=== PATIENT | female | born 1960 | race Caucasian/White ===

== ENCOUNTER 2025-04-18 15:03 | Outpatient (REF) | payer MEDICARE, SELFPAY ==
--- NOTE | 2025-04-18 | EMG_ITS ---
Chief complaint:?Multiple sclerosis, unspecified Referred by:?Trini Pathak NP Procedure done: Left upper and left lower extremities NCS/EMG Left median and ulnar and peroneal and tibial motor studies were performed. Left median and ulnar mixed sensory studies, radial sensory study, superficial peroneal and sural sensory study, and median and lateral antecubital brachial sensory studies were performed and needle examination was performed. Findings: Motor studies revealed no significant abnormality except left peroneal motor amplitude was significantly diminished. Median and lateral mixed plantars sensory studies were absent. Otherwise no significant abnormality was noted. Impression: 1. 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 [id number] 2 extremities MTDD
--- OUTSIDE RECORDS SUMMARY | 2025-04-18 07:45 | XMS_ITS | Encounter Summary ---
Author Organization [facility] Address [address] [place] [address] Care Team Providers Care Graduate Rn Name Role Phone Albina Keller MD Primary Care Prov ider Reason for Visit * Episode Based Medications (Routine) - Authorized Specialty Diagnoses / Procedures Referred By Contclementina t Referred To Contact Diagnoses Relapsing-remitting multiple sclerosis Jessa Harris MD [address] [place] [id number] Phone: tel: fax: [facility] [address] [phone] Phone: tel: fax: Referral ID Status Reason Start Date Expiration Date V isits Requested Visits Authorized [id number] Authorized 04/19/2024 04/27/2026 4 4 Encounter Details Date Type Department Care Team (Latest Contact Info) Description 04/18/2025 7:45 AM EST Hospital Encounter [facility] [address] [phone] Multiple sclerosis (Primary Dx); Encounter for therapeutic drug monitoring; Vitamin D deficiency Social History Tobacco Use Types Packs/Day Years Used Date Smoking Tobacco: Never Smokeless Tobacco: Never Alcohol Use Standard Drinks/Week Comments Yes 0 (1 standard drink = 0.6 oz pur e alcohol) Comments Unknown Sex and Gender Information Value Date Recorded Sex Assigned at Not on file Legal Sex Female 9:27 AM EST Gender Identity Not on file Sexual Orientation Not on file documented as of this encounter Last Filed Vital Signs Vital Sign Reading Time Taken Comments Blood Pressure 136/81 04/18/2025 11:30 AM EST Pulse 61 04/18/2025 11:30 AM EST Temperature 36.1 C (96.9 F) 04/18/2025 11:30 AM EST Respiratory Rate 20 04/18/2025 11:30 AM EST Oxygen Saturation 98% 04/18/2025 11:30 AM EST Inhaled Oxygen Concentration - - Weight - - Height - - Body Mass Index - - documented in this encounter Progress Notes * June Telles RN - 04/18/2025 8:00 AM EST Ocrevus dose 600mg infusion # 8 completed - Rapid Rates Pt. premedicated with 975mg PO Tylenol, 50mg IVP Benadryl and 125mg IVP Solumedrol. Labs: drawn 04/18/25 Brain MRI: 02/23/25 Cervical MRI: 02/23/25 Provider: Steven Last appointment: 02/15/25 Next appointment: 09/13/25 6 month subsequent infusion: 10/17/25 Pt. Did not complete one hour observation period; signed AMA paperwork. Pt. verbalized understanding of all discharge instructions and future appointment dates/times provided. VSS. Pt. Tolerated infusion without incident. IV removed. Patient discharged to home. documented in this encounter Plan of Treatment Upcoming Encounters Date Type Department Care Team (Late st Contact Info) Description 09/13/2025 10:00 AM EDT Office Visit [facility] - [address] [phone] Jessa Harris MD [address] [place] [address] 10/17/2025 8:00 AM EDT Appointment [facility] - [address] [phone] Pending Results Name Type Priority Associated Diagnoses Date /Time BUN Lab Routine Multiple sclerosis Encounter for therapeutic drug monitoring 04/18/2025 8:05 AM EST Creatinine Lab Routine Multiple sclerosis Encounter for therapeutic drug monitoring 04/18/2025 8:05 AM EST Vitamin B12 Lab Routine Multiple sclerosis Encounter for therapeutic drug monitoring 04/18/2025 8:05 AM EST Hepatic function panel Lab Routine Multiple sclerosis Encounter for therapeutic drug monitoring 04/18/2025 8:05 AM EST Scheduled Orders Name Type Priority Associated Diagnoses Orde r Schedule BUN Lab Routine Multiple sclerosis Encounter for therapeutic drug monitoring Once for 1 Occurrences starting 04/18/2025 until 04/18/2025 Creatinine Lab Routine Multiple sclerosis Encounter for therapeutic drug monitoring Once for 1 Occurrences starting 04/18/2025 until 04/18/2025 Vitamin B12 Lab Routine Multiple sclerosis Encounter for therapeutic drug monitoring Once for 1 Occurrences starting 04/18/2025 until 04/18/2025 Hepatic function panel Lab Routine Multiple sclerosis Encounter for therapeutic drug monitoring Once for 1 Occurrences starting 04/18/2025 until 04/18/2025 documented as of this encounter Procedures Procedure Name Priority Date/Time Associated Diagnosis Comments CBC WITH AUTO DIFFERENTIAL Routine 04/18/2025 8:05 AM EST Multiple sclerosis Encounter for therapeutic drug monitoring CBC AND DIFFERENTIAL Routine 04/18/2025 8:05 AM EST Multiple sclerosis Encounter for therapeutic drug monitoring documented in this encounter Results * (ABNORMAL) CBC auto differential (04/18/2025 8:05 AM EST) WBC 4.4(L) 4.8 - 10.8 K/mcL LAB HEMETOLOGY METHOD 04/18/2025 2:39 PM EST [facility] RBC 4.40 3.80 - 4.80 M/mcL LAB HEMETOLOGY METHOD 04/18/2025 2:39 PM EST [facility] Hemoglobin 14.3 11.5 - 16.0 g/dL LAB HEMETOLOGY METHOD 04/18/2025 2:39 PM [facility] Hematocrit 41.6 35.0 - 47.0 % LAB HEMETOLOGY METHOD 04/18/2025 2:39 PM [facility] MCV 95.0 79.0 - 98.0 FL LAB HEMETOLOGY METHOD 04/18/2025 2:39 PM [facility] MCH 32.6(H) 27.0 - 32.0 pcg LAB HEMETOLOGY METHOD 04/18/2025 2:39 PM [facility] MCHC 34.4 32.0 - 37.0 g/dL LAB HEMETOLOGY METHOD 04/18/2025 2:39 PM [facility] RDW 12.3 11.0 - 15.0 % LAB HEMETOLOGY METHOD 04/18/2025 2:39 PM [facility] Platelets 289 130 - 400 K/mcL LAB HEMETOLOGY METHOD 04/18/2025 2:39 PM [facility] MPV 12.0(H) 7.0 - 11.0 FL LAB HEMETOLOGY METHOD 04/18/2025 2:39 PM [facility] NRBC 0.0 <1.0 % LAB HEMETOLOGY METHOD 04/18/2025 2:39 PM [facility] NRBC Absolute 0.00 <0.10 K/mcL LAB HEMETOLOGY METHOD 04/18/2025 2:39 PM [facility] Neutrophils Relative 64.7 % LAB HEMETOLOGY METHOD 04/18/2025 2:39 PM [facility] Lymphocytes Relative 23.5 % LAB HEMETOLOGY METHOD 04/18/2025 2:39 PM [facility] Monocytes Relative 8.9 % LAB HEMETOLOGY METHOD 04/18/2025 2:39 PM [facility] Eosinophils Relative 1.8 % LAB HEMETOLOGY METHOD 04/18/2025 2:39 PM [facility] Basophils Relative 0.9 % LAB HEMETOLOGY METHOD 04/18/2025 2:39 PM [facility] Immature Granulocytes Relative 0.2 % LAB HEMETOLOGY METHOD 04/18/2025 2:39 PM EST [facility] Neutrophils Absolute 2.83 1.50 - 7.00 K/mcL LAB HEMETOLOGY METHOD 04/18/2025 2:39 PM EST [facility] Lymphocytes Absolute 1.03 1.00 - 5.00 K/mcL LAB HEMETOLOGY METHOD 04/18/2025 2:39 PM EST [facility] Monocytes Absolute 0.39 0.20 - 1.00 K/mcL LAB HEMETOLOGY METHOD 04/18/2025 2:39 PM EST [facility] Eosinophils Absolute 0.08 0.00 - 0.50 K/mcL LAB HEMETOLOGY METHOD 04/18/2025 2:39 PM [facility] Basophils Absolute 0.04 0.00 - 0.20 K/mcL LAB HEMETOLOGY METHOD 04/18/2025 2:39 PM EST [facility] Immature Granulocytes Absolute 0.01 0.00 - 0.03 K/mcL LAB HEMETOLOGY METHOD 04/18/2025 2:39 PM [facility] Blood Venous blood specimen / Unknown Venipuncture / Unknown 04/18/2025 8:05 AM EST 04/18/2025 8:05 AM EST [facility] BLOOD ORDERABLES Final R esult [facility] [address] [place] [address], documented in this encounter Visit Diagnoses Diagnosis Multiple sclerosis- Primary Encounter for therapeutic drug monitoring Vitamin D deficiency documented in this encounter Administered Medications Inactive Administered Medications - up to 3 most recent administrations Medication Order MAR Action Action Date Dose Rate Site acetaminophen (TYLENOL) tablet 975 mg 975 mg, oral, Once, On 04/18/25 at 0830, For 1 dose Given 04/18/2025 8:50 AM EST 975 mg diphenhydrAMINE (BENADRYL) injection 50 mg 50 mg, intravenous, Once, On Fri04/18/25 at 0830, For 1 dose Given 04/18/2025 8:50 AM EST 50 mg methylPREDNISolone sodium succ (SOLU-Medrol) injection 125 mg 125 mg, intravenous, Once, On Fri04/18/25 at 0830, For 1 dose, Reconstitute each 125 mg vial with 2 mL sterile water for injection to a concentration of 62.5 mg/mL. Given 04/18/2025 8:50 AM EST 125 mg ocrelizumab (OCREVUS) 600 mg in sodium chloride 0.9 % 520 mL IVPB 600 mg, intravenous, Once, On Fri04/18/25 at 0900, For 1 dose, If no prior serious infusion reaction with any previous ocrelizumab infusion, begin infusion at 100 mL/hour for the first 15 minutes. Increase infusion rate to 200 mL/hour for the next 15 minutes. Increase infusion rate to 250 mL/hour for the next 30 minutes. Increase infusion rate to 300 mL/hour for the remaining 60 minutes. Infusion duration is 2 hours or longer. For patients with a history of serious infusion reaction to any previous ocrelizumab infusion, begin infusion at 40 mL/hour; increase by 40 mL/hour every 30 minutes to a maximum rate of 200 mL/hour. Infusion duration is 3.5 hours or longer. Administer though a dedicated IV line using a 0.2 or 0.22 micron in-line filter.Indications:Multiple sclerosis New Bag 04/18/2025 9:15 AM EST 600 mg documented in this encounter Orders Nursing Count Last Ordered Date First Orde red Date ONC NURSING COMMUNICATION 1 04/18/2025 ONC NURSING COMMUNICATION 10 1 04/18/2025 ONC NURSING COMMUNICATION 7 1 04/18/2025 TREATMENT CONDITIONS 1 04/18/2025 documented in this encounter Care Teams Graduate Rn Relationship Specialty Start Date End Date Albina Keller MD [address] [place] [id number] PCP - General Internal Medicine 03/29/24 documented as of this encounter
--- OUTSIDE RECORDS SUMMARY | 2025-04-18 18:18 | XMS_ITS | Clinical Summary ---
Author Organization [address] [facility] Address [address] [place] [address] Phone Care Team Providers Care Fire Supervisor Name Role Phone Albina Keller MD Primary Care Prov ider Allergies Active Allergy Reactions Criticality Noted Date Comments Grass Pollen 09/19/2017 Penicillins 02/01/2016 Medications albuterol HFA (PROAIR HFA ; PROVENTIL HFA ; VENTOLIN HFA) 90 mcg/actuation inhaler Inhale 2 puffs. 01/05/2020 Active baclofen (LIORESAL) 10 mg tablet Take 1 tablet (10 mg total) by mouth. 03/13/2022 Active butalbital-acet aminophen-caffe ine (ESGIC) 50-325-40 mg per capsule 11/29/2020 Active fexofenadine (DONOVAN) 180 mg tablet Take 1 tablet (180 mg total) by mouth every other day. 11/02/2011 Active gabapentin (NEURONTIN) 100 mg capsule Take 1 capsule (100 mg total) by mouth. 08/08/2021 Active ocrelizumab (Ocrevus) 30 mg/mL solution injection Infuse 10 mL (300 mg total) into a venous catheter. 12/27/2020 Active oxybutynin XL (DITROPAN-XL) 5 mg 24 hr tablet Take 1 tablet (5 mg total) by mouth 1 (one) time each day. 01/30/2022 Active cefdinir (OMNICEF) 300 mg capsule Take 1 capsule (300 mg total) by mouth 2 (two) times a day. 06/15/2023 Active cyanocobalamin 2,000 mcg tablet 1 po qd 09/16/2023 Active solifenacin (VESICARE) 5 mg tablet Take 1 tablet (5 mg total) by mouth 1 (one) time each day. 11/26/2024 Active ergocalciferol (VITAMIN D-2) 1,250 mcg (50,000 unit) capsule TAKE 1 CAPSULE ONE TIME WEEKLY 12 capsule 02/22/2025 Active Active Problems Problem Noted Date Diagnosed Date Multiple sclerosis 01/29/2019 Overview (06/02/2022): Dr. Livingston Consult note 01/26/2019 showing extensive periventricular white matter lesions including corpus callosum and multiple black holes. No enhancing lesions in the brain. These are highly suggestive of a mass. MRI reviewed on 01/20/2019 Previous negative EMG 01/23/2017 Allergic asthma 03/25/2010 Overview (06/02/2022): Usually during the spring and the patient uses the Albuterol rarely Carpal tunnel syndrome 03/04/2008 Overview (06/02/2022): EMG 02/02; L > R Common migraine 08/03/2005 Overview (06/02/2022): IMO update Morbid obesity 08/03/2005 Encounters Date Type Department Care Team Description 04/18/2025 7:45 AM EST Hospital Encounter [facility] [address] [phone] Multiple sclerosis (Primary Dx); Encounter for therapeutic drug monitoring; Vitamin D deficiency 03/17/[address] [facility] [address] [phone] Trini Pathak, [place] 02/24/[address] [facility] [address] [place] [address] Trini Pathak PA 02/23/2025 1:46 PM EDT - 02/23/2025 11:59 PM EDT Hospital Encounter [facility] [address] [place] [phone] Multiple sclerosis Discharge Disposition: Home or Self Care 02/23/2025 1:46 PM EDT - 02/23/2025 11:59 PM EDT Hospital Encounter [facility] [address] [place] [phone] Multiple sclerosis Discharge Disposition: Home or Self Care 02/15/2025 9:00 AM EDT Office Visit [facility] [address] [facility] [address] [place] [phone] Trini Pathak PA Multiple sclerosis (Primary Dx) from Last 3 Months Surgical History Surgery Date Site/Laterality Comments CHOLECYSTECTOMY PROCEDURE: HISTORICAL CHOLECYSTECTOMY FLEXIBLE SIGMOIDOSCOPY 1994 PROCEDURE: ME SIGMOIDOSCOPY FLX DX W/COLLJ SPEC BR/WA IF PFRMD OTHER SURGICAL HISTORY 03/02 PROCEDURE: MAMMOGRAM OTHER SURGICAL HISTORY 04/02 PROCEDURE: PAP SMEAR (1 SLIDE); COMMENT: Cristian; neg COLONOSCOPY 11/06/2009 PROCEDURE: ME COLONOSCOPY FLX DX W/COLLJ SPEC WHEN PFRMD; COMMENT: Normal BREAST BIOPSY 05/2015 Right PROCEDURE: BX BREAST; PERC NEEDLE CORE W/IMAG GUID; COMMENT: cyst asp CHOLECYSTECTOMY PROCEDURE: ME LAPAROSCOPY SURG CHOLECYSTECTOMY Medical History Medical History Date Comments Arthritis DX:Arthritis MS (multiple sclerosis) DX:MS (m ultiple sclerosis) (HCC) Migraine without aura, witho ut mention of intractable migraine without mention of status migrainosus 08/03/2005 DX:Migraine without aura , without mention of intractable migraine without mention of status migrainosus Polycystic ovaries 08/03/2005 DX:Polycystic ovaries Morbid obesity (CMS/HCC V24, CMS/HCC V28) 08/03/2005 DX:Morbid obesity (HCC) Carpal tunnel syndrome 03/04/2008 DX:Carpal tunnel syndrome; COMMENT: EMG 02/02; L > R Family history of colonic polyps 11/06/2009 DX:Family history of colonic polyps Asthma DX:Asthma Multiple sclerosis DX:Multiple s clerosis (HCC) Family History Medical History Relation Name Comments Stroke Father Multiple sclerosis Father's Sister Diabetes Maternal Grandmother Other: heart disease Maternal Grandmother Other: valvular heart disease Maternal Grandmother Cancer Mother age 60 Diabetes Other Cervical cancer Sister Other: heart disease Uncle Relation Name Status Comments Father Father's Sister Maternal Grandmother Mother age 60 Alive Other Sister Uncle Social History Tobacco Use Types Packs/Day Years Used Date Smoking Tobacco: Never Smokeless Tobacco: Never Tobacco Cessation:Counseling Given: Not Answered Alcohol Use Standard Drinks/Week Comments Yes 0 (1 standard drink = 0.6 oz pur e alcohol) Comments Unknown Sex and Gender Information Value Date Recorded Sex Assigned at Not on file Legal Sex Female 9:27 AM EST Gender Identity Not on file Sexual Orientation Not on file Last Filed Vital Signs Vital Sign Reading Time Taken Comments Blood Pressure 136/81 04/18/2025 11:30 AM EST Pulse 61 04/18/2025 11:30 AM EST Temperature 36.1 C (96.9 F) 04/18/2025 11:30 AM EST Respiratory Rate 20 04/18/2025 11:3 0 AM EST Oxygen Saturation 98% 04/18/2025 11: 30 AM EST Inhaled Oxygen Concentration - - Weight 86.1 kg (189 lb 12.8 oz) 02/02/2024 9:57 AM EDT Height 139.7 cm (4' 7 ) 02/02/2024 9:57 AM EDT Body Mass Index 44.11 02/02/2024 9:57 AM EDT Plan of Treatment Upcoming Encounters Date Type Department Care Team (Late st Contact Info) Description 09/13/2025 10:00 AM EDT Office Visit [facility] [place] [address] [phone] Jessa Harris MD [address] [place] [address] 10/17/2025 8:00 AM EDT Appointment [facility] [place] [address] [phone] Health Maintenance Due Date Last Done Comments Colorectal Cancer Screening: Colonoscopy 1960 Drug Screen 1960 Non-Opioid Controlled Substance Agreement 1959 RSV Immunization Adult Patients (1 - Risk 50-74 years 1-dose series) 2009 Breast Cancer Screening 06/24/2020 06/24/2018, 06/19 Hepatitis C Screening 04/04/2022 Medicare Annual Wellness Visit 04/04/2022 Osteoporosis Screening (Bone Density Screening) 04/04/2022 Social Influencers of Health Screening 04/04/2022 Falls Risk Assessment 01/02/2024 Zoster Vaccines (2 of 2) 02/09/2024 12/15/2023, 12/27 Depression Screening 04/28/2024 COVID-19 Vaccine ( - season) 2024 03/28/2023, 07/31/2020, 07/03/2020 Influenza Vaccine (#1) 2024 , 01/20/2021, 01/11/2019, Additional history exists Cholesterol Screening (Lipid Panel) 12/16/2028 12/17/2023, 12/17/2023 DTaP,Tdap,and Td Vaccines (4 - Td or Tdap) 12/16/2033 12/17/2023, 12/10/2013, 01/07/2005 Varicella Vaccines Aged Out 01/07/2005 No longer eligible based on patient's age to complete this topic Pneumococcal Vaccine: 50+ Years Completed 03/28/2023, 12/10/2013 HIB Vaccines Aged Out No longer eligi ble based on patient's age to complete this topic HPV Vaccines Aged Out No longer eligi ble based on patient's age to complete this topic Hepatitis A Vaccines Aged Out No long er eligible based on patient's age to complete this topic Hepatitis B Vaccines Aged Out No long er eligible based on patient's age to complete this topic IPV Vaccines Aged Out No longer eligi ble based on patient's age to complete this topic MMR Vaccines Aged Out No longer eligi ble based on patient's age to complete this topic Meningococcal ACWY Vaccine Aged Out N o longer eligible based on patient's age to complete this topic Meningococcal B Vaccine Aged Out No l onger eligible based on patient's age to complete this topic RSV Immunization Patients Under 20 months Aged Out No longer eligible based on patient's age to complete this topic Procedures Procedure Name Priority Date/Time Associated Diagnosis Comments CBC WITH AUTO DIFFERENTIAL Routine 04/18/2025 8:05 AM EST Multiple sclerosis Encounter for therapeutic drug monitoring CBC AND DIFFERENTIAL Routine 04/18/2025 8:05 AM EST Multiple sclerosis Encounter for therapeutic drug monitoring MR CERVICAL SPINE WO CONTRAST Routine 02/23/2025 3:56 PM EDT Multiple sclerosis MR BRAIN WO CONTRAST Routine 02/23/2025 3:56 PM EDT Multiple sclerosis SCR MAMMO BI INCL CAD Routine 06/24/2018 8:00 AM EST Encounter for screening mammogram for malignant neoplasm of breast from Last 3 Months or Most Recently Relevant to Health Maintenance Results * (ABNORMAL) CBC auto differential (04/18/2025 8:05 AM EST) WBC 4.4(L) 4.8 - 10.8 K/mcL LAB HEMETOLOGY METHOD 04/18/2025 2:39 PM [facility] RBC 4.40 3.80 - 4.80 M/mcL LAB HEMETOLOGY METHOD 04/18/2025 2:39 PM [facility] Hemoglobin 14.3 11.5 - 16.0 g/dL LAB HEMETOLOGY METHOD 04/18/2025 2:39 PM [facility] Hematocrit 41.6 35.0 - 47.0 % LAB HEMETOLOGY METHOD 04/18/2025 2:39 PM [facility] MCV 95.0 79.0 - 98.0 FL LAB HEMETOLOGY METHOD 04/18/2025 2:39 PM [facility] MCH 32.6(H) 27.0 - 32.0 pcg LAB HEMETOLOGY METHOD 04/18/2025 2:39 PM [facility] MCHC 34.4 32.0 - 37.0 g/dL LAB HEMETOLOGY METHOD 04/18/2025 2:39 PM [facility] RDW 12.3 11.0 - 15.0 % LAB HEMETOLOGY METHOD 04/18/2025 2:39 PM [facility] Platelets 289 130 - 400 K/mcL LAB HEMETOLOGY METHOD 04/18/2025 2:39 PM [facility] MPV 12.0(H) 7.0 - 11.0 FL LAB HEMETOLOGY METHOD 04/18/2025 2:39 PM [facility] NRBC 0.0 <1.0 % LAB HEMETOLOGY METHOD 04/18/2025 2:39 PM [facility] NRBC Absolute 0.00 <0.10 K/mcL LAB HEMETOLOGY METHOD 04/18/2025 2:39 PM [facility] Neutrophils Relative 64.7 % LAB HEMETOLOGY METHOD 04/18/2025 2:39 PM [facility] Lymphocytes Relative 23.5 % LAB HEMETOLOGY METHOD 04/18/2025 2:39 PM [facility] Monocytes Relative 8.9 % LAB HEMETOLOGY METHOD 04/18/2025 2:39 PM [facility] Eosinophils Relative 1.8 % LAB HEMETOLOGY METHOD 04/18/2025 2:39 PM [facility] Basophils Relative 0.9 % LAB HEMETOLOGY METHOD 04/18/2025 2:39 PM [facility] Immature Granulocytes Relative 0.2 % LAB HEMETOLOGY METHOD 04/18/2025 2:39 PM [facility] Neutrophils Absolute 2.83 1.50 - 7.00 K/mcL LAB HEMETOLOGY METHOD 04/18/2025 2:39 PM [facility] Lymphocytes Absolute 1.03 1.00 - 5.00 K/mcL LAB HEMETOLOGY METHOD 04/18/2025 2:39 PM EST [facility] Monocytes Absolute 0.39 0.20 - 1.00 K/mcL LAB HEMETOLOGY METHOD 04/18/2025 2:39 PM EST [facility] Eosinophils Absolute 0.08 0.00 - 0.50 K/mcL LAB HEMETOLOGY METHOD 04/18/2025 2:39 PM EST [facility] Basophils Absolute 0.04 0.00 - 0.20 K/mcL LAB HEMETOLOGY METHOD 04/18/2025 2:39 PM EST [facility] Immature Granulocytes Absolute 0.01 0.00 - 0.03 K/mcL LAB HEMETOLOGY METHOD 04/18/2025 2:39 PM EST [facility] Blood Venous blood specimen / Unknown Venipuncture / Unknown 04/18/2025 8:05 AM EST 04/18/2025 8:05 AM EST Trini VERGARA LAB BLOOD ORDERABLES Final R esult [facility] [address] [place] [address], * MR Cervical Spine wo Contrast (02/23/2025 3:56 PM EDT) Anatomical Region Laterality Modality C-spine, Spine Magnetic Resonan ce 03/01/2025 9:42 AM EST Impressions 03/01/2025 9:59 AM EST 1. 2 stable areas of signal abnormality in the cervical cord which presumably represent demyelinating plaques in this patient with a provided history of multiple sclerosis. 2. Multilevel degenerative changes as detailed above, including a large right central disc osteophyte complex at C5-6 which indents the cord. -------- FINAL REPORT -------- Dictated By: Justice Kirby Dictated Date: 03/01/2025 09:42 ET Assigned Physician: Justice Kirby Reviewed and Electronically Signed By: Justice Kirby Signed Date: 03/01/2025 09:59 ET Workstation ID: [id number] Transcribed By: Self Edit Transcribed Date: 03/01/2025 09:48 ET Narrative 03/01/2025 9:59 AM EST PROCEDURE: MRI of the cervical spine without intravenous contrast. TECHNIQUE: Sagittal and axial multisequence MRI of the cervical spine without intravenous contrast administration. HISTORY: MS COMPARISON: 04/18/2024. FINDINGS: Please see the accompanying dedicated MRI brain report for findings affecting the brain and skull base. No concerning marrow infiltrative lesion. Tortuous retropharyngeal course of the right carotid artery. Otherwise unremarkable paraspinous soft tissues. The cord is normal in caliber. There is stable ill-defined signal abnormality in the central cord at the superior C4 level. Stable focus of signal abnormality in the right anterior cord at T6. No new cervical cord lesion. Possible patchy signal abnormality in the upper thoracic cord, incompletely evaluated on this study. Cervical disc levels: C2-3: Mild degenerative irregularity of the endplates. Mild irregularity and spurring of the facet joints. No significant spinal or foraminal stenosis. C3-4: Mild endplate irregularity. Small left larger than right uncovertebral spurs and minimal degenerative irregularity of the left facet joint. No spinal stenosis. Moderate left and mild right foraminal stenosis. C4-5: Mild endplate irregularity. Minimal left and small right uncovertebral spurs. Mild bilateral facet arthropathy. No spinal stenosis. Mild left greater than right foraminal stenosis. C5-6: Mild endplate irregularity. Minimal bilateral uncovertebral spurs. Large central disc osteophyte complex which indents the cord. Mild narrowing of the spinal canal. No significant foraminal stenosis. C6-7: Mild endplate irregularity. Minimal symmetric disc osteophyte complex and minimal bilateral facet arthropathy. No spinal or foraminal stenosis. C7-T1: Minimal anterolisthesis. Minimal endplate irregularity. Moderate left and mild right facet arthropathy without significant spinal or foraminal stenosis. Procedure Note Justice Kirby MD - 03/01/2025 PROCEDURE: MRI of the cervical spine without intravenous contrast. TECHNIQUE: Sagittal and axial multisequence MRI of the cervical spinewithout intravenous contrast administration. HISTORY: MS COMPARISON: 04/18/2024. FINDINGS: Please see the accompanying dedicated MRI brain report for findingsaffecting the brain and skull base. No concerning marrow infiltrative lesion. Tortuous retropharyngeal course of the right carotid artery. Otherwiseunremarkable paraspinous soft tissues. The cord is normal in caliber. There is stable ill-defined signalabnormality in the central cord at the superior C4 level. Stable focus ofsignal abnormality in the right anterior cord at T6. No new cervical cordlesion. Possible patchy signal abnormality in the upper thoracic cord,incompletely evaluated on this study. Cervical disc levels: C2-3: Mild degenerative irregularity of the endplates. Mild irregularityand spurring of the facet joints. No significant spinal or foraminalstenosis. C3-4: Mild endplate irregularity. Small left larger than rightuncovertebral spurs and minimal degenerative irregularity of the leftfacet joint. No spinal stenosis. Moderate left and mild right foraminalstenosis. C4-5: Mild endplate irregularity. Minimal left and small rightuncovertebral spurs. Mild bilateral facet arthropathy. No spinalstenosis. Mild left greater than right foraminal stenosis. C5-6: Mild endplate irregularity. Minimal bilateral uncovertebral spurs.Large central disc osteophyte complex which indents the cord. Mildnarrowing of the spinal canal. No significant foraminal stenosis. C6-7: Mild endplate irregularity. Minimal symmetric disc osteophytecomplex and minimal bilateral facet arthropathy. No spinal or foraminalstenosis. C7-T1: Minimal anterolisthesis. Minimal endplate irregularity. Moderateleft and mild right facet arthropathy without significant spinal orforaminal stenosis. IMPRESSION: 1. 2 stable areas of signal abnormality in the cervical cord whichpresumably represent demyelinating plaques in this patient with a providedhistory of multiple sclerosis. 2. Multilevel degenerative changes as detailed above, including a largeright central disc osteophyte complex at C5-6 which indents the cord. -------- FINAL REPORT -------- Dictated By: Justice Kirby Dictated Date: 03/01/2025 09:42 ET Assigned Physician: Justice Kirby Reviewed and Electronically Signed By: Justice Kirby Signed Date: 03/01/2025 09:59 ET Workstation ID: [id number] Transcribed By: Self Edit Transcribed Date: 03/01/2025 09:48 ET [facility] IM MRI PROCEDURES Final Res ult * MR Brain wo Contrast (02/23/2025 3:56 PM EDT) Anatomical Region Laterality Modality Head and Neck Magnetic Resonan ce 03/01/2025 8:32 AM EST Impressions 03/01/2025 8:47 AM EST Given differences in technique, no appreciable interval change in multifocal T2 hyperintense lesions suggesting demyelinating plaques. No findings to suggest active demyelination. -------- FINAL REPORT -------- Dictated By: Jsutice Kirby Dictated Date: 03/01/2025 08:32 ET Assigned Physician: Justice Kirby Reviewed and Electronically Signed By: Justice Kirby Signed Date: 03/01/2025 08:47 ET Workstation ID: [id number] Transcribed By: Self Edit Transcribed Date: 03/01/2025 08:32 ET Narrative 03/01/2025 8:47 AM EST PROCEDURE: Noncontrast MRI of the brain. HISTORY: multiple sclerosis. COMPARISON: 04/18/2024. TECHNIQUE: Multiplanar multisequence MRI of the brain without intravenous contrast administration. FINDINGS: BRAIN: The comparison study was performed with less sensitive technique than today's examination (it did not include a volume acquisition FLAIR sequence). Given this limitation, multifocal cortical and periventricular supratentorial white matter lesions are not appreciably changed. Some of the lesions are hypointense on the T1-weighted spin-echo sequence; the T1 lesion burden is unchanged. Patchy signal abnormality in the brainstem and a focus of signal abnormality in the anterior left cerebellar hemisphere also appear grossly stable. No diffusion abnormality. No mass or extra-axial fluid collection. No hydrocephalus. The major intracranial flow voids are preserved. Age commensurate ventricles and sulci. ORBITS: Lens implants. T2 signal abnormality in the left optic nerve. SINUSES/MASTOIDS: Patchy mucosal thickening in the right ethmoid air cells. Minimal mucosal thickening along the floor the right maxillary antrum. Rightward bowing of the inferior nasal septum with a moderate apical septal spur. CALVARIUM: Mild hyperostosis frontalis interna. OTHER: The visualized skull base soft tissues are normal. Mild degenerative changes of the visualized cervical spine. Procedure Note Justice Kirby MD - 03/01/2025 PROCEDURE: Noncontrast MRI of the brain. HISTORY: multiple sclerosis. COMPARISON: 04/18/2024. TECHNIQUE: Multiplanar multisequence MRI of the brain without intravenouscontrast administration. FINDINGS: BRAIN: The comparison study was performed with less sensitive techniquethan today's examination (it did not include a volume acquisition FLAIRsequence). Given this limitation, multifocal cortical and periventricularsupratentorial white matter lesions are not appreciably changed. Some ofthe lesions are hypointense on the T1-weighted spin-echo sequence; the I4qamnro burden is unchanged. Patchy signal abnormality in the brainstemand a focus of signal abnormality in the anterior left cerebellarhemisphere also appear grossly stable. No diffusion abnormality. No massor extra-axial fluid collection. No hydrocephalus. The majorintracranial flow voids are preserved. Age commensurate ventricles andsulci. ORBITS: Lens implants. T2 signal abnormality in the left optic nerve. SINUSES/MASTOIDS: Patchy mucosal thickening in the right ethmoid aircells. Minimal mucosal thickening along the floor the right maxillaryantrum. Rightward bowing of the inferior nasal septum with a moderateapical septal spur. CALVARIUM: Mild hyperostosis frontalis interna. OTHER: The visualized skull base soft tissues are normal. Milddegenerative changes of the visualized cervical spine. IMPRESSION: Given differences in technique, no appreciable interval change inmultifocal T2 hyperintense lesions suggesting demyelinating plaques. Nofindings to suggest active demyelination. -------- FINAL REPORT -------- Dictated By: Justice Kirby Dictated Date: 03/01/2025 08:32 ET Assigned Physician: Justice Kirby Reviewed and Electronically Signed By: Justice Kirby Signed Date: 03/01/2025 08:47 ET Workstation ID: [id number] Transcribed By: Self Edit Transcribed Date: 03/01/2025 08:32 ET [facility] IMG MRI PROCEDURES Final Res ult * SCR MAMMO BI INCL CAD (06/24/2018 8:00 AM EST) Anatomical Region Laterality Modality Radiographic Na ging 06/19/2017 7:44 AM EST Narrative 06/24/2018 10:57 AM EST This is a summary report. The complete report is available in the patient's medical record. If you cannot access the medical record, please contact the sending organization for a detailed fax or copy. Full field digital screening mammography, reviewed with CAD and compared to previous. The breasts are composed of fatty and fibroglandular tissue. No suspicious mass, architectural distortion or suspicious calcifications are identified. IMPRESSION: : No mammographic evidence of malignancy. BIRADS 1-Negative; N. 5 year breast cancer risk assessment 3.2 % Lifetime breast cancer risk assessment 16.6 % Breast cancer risk category Moderate (15% - 20%) Procedure Note Brittany Ford MD - 04/16/2022 This is a summary report. The complete report is available in thepatient's medical record. If you cannot access the medical record, pleasecontact the sending organization for a detailed fax or copy. Full field digital screening mammography, reviewed with CAD and comparedto previous. The breasts are composed of fatty and fibroglandular tissue.No suspicious mass, architectural distortion or suspicious calcificationsare identified. IMPRESSION: : No mammographic evidence of malignancy. BIRADS 1-Negative; N. 5 year breast cancer risk assessment 3.2 % Lifetime breast cancer risk assessment 16.6 % Breast cancer risk category Moderate (15% - 20%) us Marilyn Hazel DO IMG XR PROCEDURES Final Res ult from Last 3 Months or Most Recently Relevant to Health Maintenance Insurance [place] [id number] [facility] MEDICARE ADVANTAGE on file Care Teams Fire Supervisor Relationship Specialty Start Date End Date Albina Keller MD [address] [place] [id number] PCP - General Internal Medicine 03/29/24
--- OUTSIDE RECORDS SUMMARY | 2025-04-18 18:18 | XMS_ITS | Clinical Summary ---
Author Organization [facility] Prior to 09/25/24 Address [address] [place] [address] Care Team Providers Care Enologist Name Role Phone Albina Keller MD Primary Care Prov ider Allergies Active Allergy Reactions Criticality Noted Date Comments Levonorgestrel-Ethinyl Estrad 2020 Penicillins 10/17/2020 Seasonal 09/19/2017 Medications Medication Sig Dispensed Refills Start Date End Date Status Fexofenadine HCl (DONOVAN PO) Take by mouth. 0 Active Fwrmhnjdkg-YXMV-Eo ffeine 50-325-40 MG per capsule 0 11/29/2020 Active albuterol (ACCUNEB) 0.63 MG/3ML nebulizer soln (NICU) Take 3 mL (0.63 mg total) by nebulization every 6 (six) hours as needed for wheezing. 0 Active Ocrelizumab (OCREVUS IV) Inject into the vein. 0 Active baclofen (LIORESAL) 10 MG tablet Take 1 tablet (10 mg total) by mouth daily as needed. 30 tablet 1 05/13/2022 Active indomethacin (INDOCIN) 50 MG capsule Take 1 capsule (50 mg total) by mouth 2 (two) times a day with meals. 90 capsule 2 05/13/2022 Active escitalopram (LEXAPRO) tablet 5 mg 1 po qd 90 tablet 3 02/10/2023 Active ergocalciferol (VITAMIN D2) capsule 51998 units TAKE 1 CAPSULE ONE TIME WEEKLY 12 capsule 3 09/01/2023 Active Cyanocobalamin (Vitamin B-12) 2000 MCG TBCR 1 po qd 30 tablet 5 09/16/2023 Active gabapentin (NEURONTIN) 100 MG capsule Take 1 capsule (100 mg total) by mouth every night at bedtime. 90 capsule 5 09/16/2023 Active buPROPion (WELLBUTRIN XL) 150 MG 24 hr tablet TAKE 1 TABLET BY MOUTH EVERY DAY IN THE MORNING 0 09/29/2023 Active solifenacin (VESICARE) 5 MG tablet 0 09/12/2023 Active modafinil (PROVIGIL) 100 MG tablet 1 po in am 30 tablet 5 11/26/2023 Active Active Problems Problem Noted Date Diagnosed Date Multiple sclerosis 11/27/2020 Family History Medical History Relation Name Comments Stroke Father Cancer Mother Multiple sclerosis Paternal Aunt Relation Name Status Comments Father Mother Paternal Aunt Social History Tobacco Use Types Packs/Day Years Used Date Smoking Tobacco: Never Smokeless Tobacco: Never Tobacco Cessation:Counseling Given: Not Answered Sex and Gender Information Value Date Recorded Sex Assigned at Not on file Gender Identity Not on file Sexual Orientation Not on file Job Start Date Occupation Industry Not on file Not on file Not on file Last Filed Vital Signs Vital Sign Reading Time Taken Comments Blood Pressure 124/80 11/26/2023 9:14 AM EDT Pulse 84 11/26/2023 9:14 AM EDT Temperature 35.9 C (96.7 F) 11/26/2023 9:14 AM EDT Respiratory Rate 18 08/29/2023 3:42 PM EDT Oxygen Saturation 96% 11/26/2023 9:14 AM EDT Inhaled Oxygen Concentration - - Weight 85.5 kg (188 lb 9.6 oz) 11/26/2023 9:14 A M EDT Height 139.7 cm (4' 7 ) 11/26/2023 9:14 AM EDT Body Mass Index 43.83 11/26/2023 9:14 AM EDT Plan of Treatment Health Maintenance Due Date Last Done Comments Hepatitis C Screening 1960 COVID-19 Vaccine (#1) 1959 Depression Screening 1971 BMI Counseling 1977 Preventative Health Evaluation 1977 Colon Cancer Screening (Colonoscopy) 01/02/2004 Breast Cancer Screening (Mammogram) 2009 Shingrix-Zoster Vaccine (1 o f 2) 2009 DTap / Tdap / Td (2 - Td or Tdap) 12/11/2023 12/10/2013 Fall Risk Assessment 01/02/2024 Osteoporosis Screening (DEXA Scan) 01/02/2024 Pneumococcal Vaccine (2 of 2 - PCV) 01/02/2024 12/10/2013 Influenza Vaccine (#1) 2024 8, 10/25/2017, 03/04/2017 RSV Adult > 60+ Yrs or (1 - 1-dose 75+ series) 2034 Hepatitis B Vaccines Aged Out No long er eligible based on patient's age to complete this topic RSV Ped < 20 months Aged Out No longe r eligible based on patient's age to complete this topic Care Teams Enologist Relationship Specialty Start Date End Date Albina Keller MD PCP - General Internal Medicine 10/11/20
--- OUTSIDE RECORDS SUMMARY | 2025-04-18 18:18 | XMS_ITS ---
Author Name [facility] Organization Unknown History of Medication Use Medication Directions Dispensed Refills Start Date End Date Status modafinil (PROVIGIL) 100 MG tablet 1 po in am 4 active buPROPion (WELLBUTRIN XL) 150 MG 24 hr tablet TAKE 1 TABLET BY MOUTH EVERY DAY IN THE MORNING 4 active Cyanocobalamin (Vitamin B-12) 2000 MCG TBCR 1 po qd 4 active solifenacin (VESICARE) 5 MG tablet 4 active ergocalciferol (VITAMIN D2) capsule 75482 units TAKE 1 CAPSULE ONE TIME WEEKLY 4 active acetaminophen (TYLENOL) tablet 975 mg 975 mg, Oral, Once, On Fri02/10/23 at 0930, For 1 doseGive 30 minutes prior to ocrelizumab. 3 023 completed diphenhydrAMINE (BENADRYL) injection 50 mg 50 mg, Intravenous, Once, On Fri02/10/23 at 0930, For 1 doseGive 30 minutes prior to ocrelizumab. IV push over 2-3 minutes. See PO diphenhydramine order. Please give PO or IV. Common Side Effects: Drowsiness, stomach upset, confusion, dry mouth. Administer undiluted. Maximum rate 25 mg/min. 3 023 completed methylPREDNISolone sodium succinate (SOLU-Medrol) injection 125 mg 125 mg, Intravenous, Once, On Fri02/10/23 at 0930, For 1 doseGive 30 minutes prior to ocrelizumab. Administer over 2-3 minutes 3 023 completed ocrelizumab (OCREVUS) 600 mg in sodium chloride (NS) 0.9 % 500 mL IVPB 600 mg, Intravenous, Once, On 02/10/23 at 0930, For 1 doseMust use in-line 0.22 micron filter. - Infusion Rate for first full 600 mg dose or reaction with previous infusion: Start at 40 mL/hr. Increase by 40 mL/hr every 30 minutes. Maximum rate: 200 mL/hr. Duration: 3.5 hours or longer. - Infu 3 023 completed escitalopram (LEXAPRO) tablet 5 mg 1 po qd 3 active oxybutynin (DITROPAN-XL) 5 MG 24 hr tablet Take 2 tablets (10 mg total) by mouth daily. 3 024 aborted ergocalciferol (VITAMIN D2) capsule 67347 units Take 1 capsule (50,000 Units total) by mouth once a week. 3 024 active baclofen (LIORESAL) 10 MG tablet Take 1 tablet (10 mg total) by mouth daily as needed. 3 active indomethacin (INDOCIN) 50 MG capsule Take 1 capsule (50 mg total) by mouth 2 (two) times a day with meals. 3 active gabapentin (NEURONTIN) 100 MG capsule Take 1 capsule (100 mg total) by mouth every night at bedtime. 2 active Hvlmlxiwfs-ZJES-Eoehpy ne 50-325-40 MG per capsule 1 active albuterol (ACCUNEB) 0.63 MG/3ML nebulizer soln (NICU) Take 3 mL (0.63 mg total) by nebulization every 6 (six) hours as needed for wheezing. active Fexofenadine HCl (DONOVAN PO) Take by mouth. active Allergies Allergen Reaction Severity Comment Documented Date Source Statu s PENICILLINS 10/17/2020 [facility] active SEASONAL 09/19/2017 [facility] active LEVONORGESTREL-ETHINYL ESTRAD [facility] Problems Problem Status Onset Date Problem Type Date of Resoluti on Source Multiple sclerosis active 2020-11-27 ProblemAct [facility]
== END 2025-04-18 15:04 | disposition home or self-care (01) ==
LOC: HO.NEURO 15:03
PROVIDERS: Visit Provider Physician Assistant
DX: G57.92 Unspecified mononeuropathy of left lower limb (principal); G35.D Multiple sclerosis, unspecified
CPT/HCPCS: 95886; 95913

== ENCOUNTER → 2025-04-18 15:05 | Outpatient (BNV) | payer MEDICARE, SELFPAY | PROVIDERS: Visit Provider Psychiatry & Neurology Neurology | DX: G57.42 Lesion of medial popliteal nerve, left lower limb (principal) | CPT/HCPCS: 95886; 95913 ==